=== PATIENT | female | born 1995 | race Caucasian/White ===

== ENCOUNTER 2017-04-14 00:29 | Emergency (ER) | payer BC ==
[~2017-04-14] VITALS: Ht 157.5 cm; Wt 71.1 kg
[~2017-04-14 00:29] MED LIST: ALBUAER2 INH; BCPILLS PO; MONT1TAB3 PO
[2017-04-14 00:38] VITALS: TEMP 36.8; Ht 157.5 cm; Wt 71.1 kg
--- NOTE | 2017-04-14 01:01 | EMERGENCY ROOM VISIT NOTE ---
History Report prepared by Christoph: Kodi Wang Under the Supervision of: Dr. Akhil Vallecillo M.D. First contact with patient: 00:40 Chief Complaint: MENTAL HEALTH EVALUATION Stated Complaint: MENTAL HEALTH EVALUATION History of Present Illness The patient is a 21 year old female brought in by police who presents to the Emergency Room for a mental health evaluation. Per the nursing staff, the patient sent a text message to her boyfriend that she wanted to kill herself tonight. The patient's friends told the patient's boyfriend that the patient told her friends that she took pills. However, the patient denies taking pills and denies telling people that she took pills. The patient admits to sending concerning text messages, and says that she has not been diagnosed or evaluated for depression in the past. She states that she has never tried to hurt herself , and says that "nothing happened" tonight. The patient says that nobody has been hurting her. She adds that she drank alcohol 11 hours ago. She denies any drug use of chance of . History limited secondary to patient's poor cooperation. Source of History: patient, nursing staff History Limited By: poor cooperation Position: other (global - mental health evaluation) Symptom Intensity: answers no to all questions Quality: other (sent text message to boyfriend saying that she was going to kill herself) Note: Associated symptoms: Denies taking pills. Review of Systems Unable to get ROS because patient answers no to all questions. Past Medical & Surgical Medical Problems: (1) Asthma (2) No significant active problems Family History Cancer Diabetes mellitus Gallbladder disease Heart disease Hypertension Social History Smoking Status: Never Smoker Alcohol Use: none Marital Status: single Housing Status: lives with roommate Occupation Status: [employer] student Current/Historical Medications Scheduled Loratadine (Claritin), 10 MG PO DAILY Montelukast Sodium (Singulair), 10 MG PO DAILY Scheduled PRN Albuterol (Ventolin Hfa), 2 PUFF INH for Wheezing Allergies Coded Allergies: Latex1 -Allergic Contact Dermititis (Verified Allergy, Unknown, HIVES, ) Sulfamethoxazole w/Trimethoprim (Verified Allergy, Unknown, ANAPHYLAXIS, ) Physical Exam Vital Signs Date Time Temp Pulse Resp B/P (MAP) Pulse Ox O2 Delivery O2 Flow Rate FiO2 04/14/17 04:58 83 20 118/77 98 04/14/17 02:28 110 20 142/72 100 Room Air 04/14/17 00:38 36.8 112 18 151/85 99 Room Air Physical Exam GENERAL: Patient is obstinate, unwilling to cooperate, but allows exam. HEENT: No acute trauma, normocephalic atraumatic, mucous membranes moist, no nasal congestion, no scleral icterus. NECK: No stridor, no adenopathy, no meningismus, trachea is midline. LUNGS: No dyspnea. Clear to auscultation and equal bilaterally. No wheeze, no rhonchi. HEART: Regular rate and rhythm. No murmurs, rubs, gallops appreciated. ABDOMEN: Soft, nontender, bowel sounds positive, no masses appreciated, no peritonitis. BACK: No midline tenderness, no CVA tenderness EXTREMITIES: Normal motion all extremities, no cyanosis, no edema. NEUROLOGIC: Alert and oriented, no acute motor or sensory deficits, no focal weakness, cranial nerves grossly intact. SKIN: No rash, no jaundice, no diaphoresis. PSYCH: Difficult to ascertain due to her refusal to answer questions. Medical Decision & Procedures Laboratory Results 04/14/17 01:09 Red Blood Count 4.83, Mean Corpuscular Volume 87.0, Mean Corpuscular Hemoglobin 29.2, Mean Corpuscular Hemoglobin Concent 33.6, Mean Platelet Volume 9.9, Neutrophils (%) (Auto) 58.5, Lymphocytes (%) (Auto) 28.8, Monocytes (%) (Auto) 10.2, Eosinophils (%) (Auto) 1.2, Basophils (%) (Auto) 0.3, Neutrophils # (Auto ) 5.42, Lymphocytes # (Auto) 2.66, Monocytes # (Auto) 0.94, Eosinophils # (Auto ) 0.11, Basophils # (Auto) 0.03 04/14/17 01:09 Test 04/14/17 00:44 04/14/17 01:09 Urine Color YELLOW Urine Appearance CLOUDY (CLEAR) Urine pH 6.5 (4.5-7.5) Urine Specific Moore 1.018 (1.000-1.030) Urine Protein NEG (NEG) Urine Glucose (UA) NEG (NEG) Urine Ketones NEG (NEG) Urine Occult Blood 2+ (NEG) Urine Nitrite NEG (NEG) Urine Bilirubin NEG (NEG) Urine Urobilinogen NEG (NEG) Urine Leukocyte Esterase LARGE (NEG) Urine WBC (Auto) >30 /hpf (0-5) Urine RBC (Auto) 10-30 /hpf (0-4) Urine Hyaline Casts (Auto) 1-5 /lpf (0-5) Urine Epithelial Cells (Auto) >30 /lpf (0-5) Urine Bacteria (Auto) 2+ (NEG) Urine Test NEG (NEG) Urine Opiates Screen NEG (NEG) Urine Methadone, Qualitative NEG (NEG) Urine Barbiturates NEG (NEG) Urine Phencyclidine (PCP) Level NEG (NEG) Ur Amphetamine/Methamphetamine NEG (NEG) MDMA (Ecstasy) Screen NEG (NEG) Urine Benzodiazepines Screen NEG (NEG) Urine Cocaine Metabolite NEG (NEG) Urine Marijuana (THC) NEG (NEG) White Blood Count 9.25 K/uL (4.8-10.8) Red Blood Count 4.83 M/uL (4.2-5.4) Hemoglobin 14.1 g/dL (12.0-16.0) Hematocrit 42.0 % (37-47) Mean Corpuscular Volume 87.0 fL (80-100) Mean Corpuscular Hemoglobin 29.2 pg (25-34) Mean Corpuscular Hemoglobin Concent 33.6 g/dl (32-36) Platelet Count 310 K/uL (130-400) Mean Platelet Volume 9.9 fL (7.4-10.4) Neutrophils (%) (Auto) 58.5 % Lymphocytes (%) (Auto) 28.8 % Monocytes (%) (Auto) 10.2 % Eosinophils (%) (Auto) 1.2 % Basophils (%) (Auto) 0.3 % Neutrophils # (Auto) 5.42 K/uL (1.4-6.5) Lymphocytes # (Auto) 2.66 K/uL (1.2-3.4) Monocytes # (Auto) 0.94 K/uL (0.11-0.59) Eosinophils # (Auto) 0.11 K/uL (0-0.5) Basophils # (Auto) 0.03 K/uL (0-0.2) RDW Standard Deviation 41.6 fL (36.4-46.3) RDW Coefficient of Variation 12.9 % (11.5-14.5) Immature Granulocyte % (Auto) 1.0 % Immature Granulocyte # (Auto) 0.09 K/uL (0.00-0.02) Anion Gap 8.0 mmol/L (3-11) Est Creatinine Clear Calc Drug Dose 82.2 ml/min Estimated GFR () 93.3 Estimated GFR (Non- 80.5 BUN/Creatinine Ratio 11.3 (10-20) Calcium Level 8.6 mg/dl (8.5-10.1) Total Bilirubin 0.2 mg/dl (0.2-1) Aspartate Amino Transf (AST/SGOT) 20 U/L (15-37) Alanine Aminotransferase (ALT/SGPT) 30 U/L (12-78) Alkaline Phosphatase 85 U/L (45-117) Total Protein 7.9 gm/dl (6.4-8.2) Albumin 4.3 gm/dl (3.4-5.0) Globulin 3.6 gm/dl (2.5-4.0) Albumin/Globulin Ratio 1.2 (0.9-2) Thyroid Stimulating Hormone (TSH) 1.880 uIu/ml (0.300-4.500) Salicylates Level < 1.7 mg/dl (2.8-20) Acetaminophen Level < 2 ug/ml (10-30) Ethyl Alcohol mg/dL 65.0 mg/dl (0-3) Laboratory results as reviewed by me. ED Course 0052: The patient was evaluated in room A8. A limited history and physical exam was performed. 0450: I reevaluated the patient and she is calm, cooperative, and apologetic. Her boyfriend who filled out the 302 petition feels that the patient is completely safe to go home. 3 eda evaluated the patient and feels that she is safe at home. They have a safety plan with her, and she is aware that she can return at any time if worsening or having any concerns. 3 eda will help her get follow up care. The patient verbally expressed understanding and agreement of the treatment plan. The patient will be discharged. Medical Decision Differential: Mood Disorder, Overdose, Infectious, Electrolyte Abnormality, Cardiac, Hepatic, Endocrine, Toxicologic, Neurologic, amongst other pathologies entertained. 21 yr old female brought in by police for evaluation of suicidal statements while intoxicated. No history of depression nor suicide attempts and boyfriend confirms this. She initially was quite obstinate but after calming down she is much more cooperative, answering questions and in no distress. She is apologetic and without concerns. Medically clear. Boyfriend who initially filled out 302 petition feels she is safe for discharge. He will be with her and she states she feels safe going home. hey have no weapons at home. Medication Reconcilliation Current Medication List: was personally reviewed by me Blood Pressure Screening Patient's blood pressure: Elevated blood pressure Blood pressure disposition: Elevated BP felt to be situational Impression Primary Impression: Depression Scribe Attestation The scribe's documentation has been prepared under my direction and personally reviewed by me in its entirety. I confirm that the note above accurately reflects all work, treatment, procedures, and medical decision making performed by me. Departure Information Dispostion Home / Self-Care Referrals No Doctor, Assigned (PCP) Patient Instructions Depression Causes, [facility] Additional Instructions Do not drink any more alcohol. This can can depression and decrease inhibition. We are here to help. Return at any time or call 911 if you are concerned you may harm yourself or others.
[2017-04-14 01:13] LABS: PREG INTERNAL NEGATIVE QC NEG CLEAR BACKGROUND; PREG INTERNAL POSITIVE QC POS CONTROL LINE
[2017-04-14 01:14] LABS: URINE APPEARANCE CLOUDY (CLEAR); URINE BILIRUBIN NEG (NEG); URINE COLOR YELLOW; URINE EPITHELIAL CELL AUTO >30 /lpf (0-5); URINE NITRITE NEG (NEG); URINE PH 6.5 (4.5-7.5); URINE SPECIFIC GRAVITY 1.018 (1.000-1.030); UROBILINOGEN NEG (NEG); ZZUR CULT IF INDIC CLEAN CATCH YES
[2017-04-14 01:15] LABS: MANUAL MICROSCOPIC REQUIRED? NO; REVIEW REQ? NO
[2017-04-14 01:21] LABS: BASO % 0.3 %; BASO ABS # 0.03 K/uL (0-0.2); COMPLETE YES; EOS % 1.2 %; LYMPH % 28.8 %; LYMPH ABS # 2.66 K/uL (1.2-3.4); MEAN CORPUSCULAR HEMOGLOBIN 29.2 pg (25-34); MEAN CORPUSCULAR HGB CONC 33.6 g/dl (32-36); MEAN PLATELET VOLUME 9.9 fL (7.4-10.4); MONO % 10.2 %; NEUT % 58.5 %; PLATELET COUNT 310 K/uL (130-400); RED BLOOD COUNT 4.83 M/uL (4.2-5.4); WHITE BLOOD COUNT 9.25 K/uL (4.8-10.8)
[2017-04-14 01:32] LABS: BENZODIAZEPINE, URINE NEG (NEG); COCAINE,URINE NEG (NEG); PHENCYCLIDINE, URINE NEG (NEG)
[2017-04-14 01:43] LABS: BUN/CREATININE RATIO 11.3 (10-20); CALCIUM 8.6 mg/dl (8.5-10.1); POTASSIUM 3.5 mmol/L (3.5-5.1)
[2017-04-14] MEDS ORDERED: CLR10 PO (01:51)
[2017-04-14 01:52] LABS: ALB/GLOB RATIO 1.2 (0.9-2); THYROID STIMULATING HORMONE 1.88 uIu/ml (0.300-4.500)
[2017-04-14 01:53] LABS: ACETAMINOPHEN < 2 ug/ml (10-30)
[2017-04-14 04:58] VITALS: BP 118/77; PULSE 83; O2SAT 98
== END 2017-04-14 05:01 | disposition home or self-care (01) ==
LOC: C.EDB 00:31 → C.EDA 05:01
DX: F32.9 Major depressive disorder, single episode, unspecified (principal); J45.909 Unspecified asthma, uncomplicated; Z83.3 Family history of diabetes mellitus; Z82.49 Family history of ischemic heart disease and other diseases of the circulatory system

== ENCOUNTER 2017-08-08 15:32 | Emergency (ER) | payer BC ==
[~2017-08-08] VITALS: Ht 157.5 cm; Wt 70.1 kg
[~2017-08-08 15:32] MED LIST changes: -BCPILLS PO; +CLR10 PO
[2017-08-08 15:50] VITALS: TEMP 37; Ht 157.5 cm; Wt 70.1 kg
--- NOTE | 2017-08-08 16:10 | EMERGENCY ROOM VISIT NOTE ---
ED Visit Note First contact with patient: 15:51 CHIEF COMPLAINT: Elbow pain HISTORY OF PRESENT ILLNESS: This 22-year-old female patient presents to the emergency department one day after injuring her left elbow and a fall. She fell down a flight of metal steps. She denies any other injuries. She has not taken anything for pain. She denies any numbness or tingling. No pain in the left wrist. No pain into the shoulder. The pain is worse with extension of the elbow. She denies any previous injury to the elbow. She is right-handed. REVIEW OF SYSTEMS: A 6 system review of systems was completed with positives and pertinent negatives listed in the HPI. ALLERGIES: No known drug allergies MEDICATIONS: Reviewed PMH: Asthma SOCIAL HISTORY: Denies cigarette use. Occasional EtOH. She is a [employer] student. PHYSICAL EXAM: Vital Signs: Reviewed Nurse's notes, vital signs stable. GENERAL : 22-year-old female, in no acute distress, well-developed, well-nourished. SKIN: The skin was without rashes, erythema, edema, warmth, or bruising. Capillary reflex less than 3 seconds. MUSCULOSKELETAL: The patient is holding their elbow in a flexed position. There is tenderness over the radial head of the left elbow. There is tenderness with extension of the left elbow. There is no tenderness of the shoulder, wrist, or hand. The patient is able to give a thumbs up, make an OK sign, and a #3 with their fingers. Radial pulse 2+. NEURO: Patient was alert and oriented to person place and time. Normal sensation to light and sharp touch. EMERGENCY DEPARTMENT COURSE: I examined the patient. An x-ray of the left elbow was reviewed IMPRESSION: Negative study. The above report was generated using voice recognition software. It may contain grammatical, syntax or spelling errors. Electronically signed by: Travis Gonzalez M.D. 08/08/2017 4:19 PM Dictated Date/Time: 08/08/2017 4:18 PM The status of this report is Signed. Draft = Not yet reviewed or approved by Radiologist. Signed = Reviewed and approved by Radiologist. <AttendingPhy></AttendingPhy> <FamilyPhy>No Doctor, Assigned</FamilyPhy> < PrimaryPhy>No Doctor, Assigned</PrimaryPhy> <UnitNumber>[id number]</UnitNumber> <VisitNumber>[id number]</VisitNumber> <PatientName>JOSE ALEJANDRO RICHARDSON</ PatientName> <DateOfBirth>1995</DateOfBirth> <Location>[facility]</Location> < ServiceDate>08/08/17</ServiceDate> <MNE>ESINDI</MNE> <OrderingPhy>Urban The patient was placed in sling under my direction and the position was satisfactory. Neurovascular status was rechecked and intact. The patient was discharged home in stable condition. DIAGNOSIS: Elbow contusion DISCHARGE INSTRUCTIONS & TREATMENT: Please apply ice intermittently over the next 48 hours. Tylenol and ibuprofen for pain. Ibuprofen 800 mg and/or Tylenol 1000 mg every 8 hours. You may also alternate these medications for more effective pain relief: Ibuprofen --4 HRS--> Tylenol --4 HRS--> ibuprofen --4 HRS--> Tylenol .... Please follow-up with [facility] if this is not improving in the next 5 days. Do not hesitate to return to the emergency department with any new, worsening or concerning symptoms This chart was completed in part utilizing [employer] Voice Recognition software. Attempts were made to minimize the grammatical errors, random word insertions, pronoun errors and incomplete sentences. Any formal questions or concerns about the content, text or information contained within the body of this dictation should be directly addressed to the provider for clarification.
--- NOTE | 2017-08-08 16:21 | DIAGNOSTIC IMAGING REPORT ---
L ELBOW MIN 3 VIEWS ROUTINE CLINICAL HISTORY: L elbow pain pain COMPARISON: None. DISCUSSION: The bones and joint spaces appear intact. There is no evidence of fracture, dislocation or bony disease. There is no evidence for soft tissue swelling. IMPRESSION: Negative study. The above report was generated using voice recognition software. It may contain grammatical, syntax or spelling errors. Electronically signed by: Travis Gonzalez M.D. 08/08/2017 4:19 PM Dictated Date/Time: 08/08/2017 4:18 PM
[2017-08-08 17:19] VITALS: BP 124/81; PULSE 84; O2SAT 98
== END 2017-08-08 17:21 | disposition home or self-care (01) ==
LOC: C.EDB 15:34 → C.EDD 17:21
DX: S50.02XA Contusion of left elbow, initial encounter (principal); W10.9XXA Fall (on) (from) unspecified stairs and steps, initial encounter; J45.909 Unspecified asthma, uncomplicated